=== PATIENT | female | born 2005 | race Caucasian/White ===

== ENCOUNTER 2025-10-17 16:59 | Emergency (ER) | payer OTHER, SELFPAY ==
[2025-10-17 17:15] VITALS: BP 148/79; PULSE 142; RESP 18; TEMP 38.5; O2SAT 98
[2025-10-17 17:55] VITALS: TEMP 38.4
--- NOTE | 2025-10-17 18:06 | ED.URI ---
HPI - URI/Sore Throat General Chief Complaint: Upper Respiratory Infection Stated Complaint: Fever/Dizziness/Cough Time Seen by Provider: 10/17/25 18:02 Source: patient, RN notes reviewed and old records reviewed Mode of arrival: ambulatory Limitations: no limitations History of Present Illness HPI Narrative: 20 year old female who presents to [facility] care with complaints of fever, cough, ear pain, decreased appetite and body aches that just started today. Patient reports that she took some sinus medication. Patient is febrile at 101.2F at time of triage. Patient reports no shortness of breath no tachypnea noted with SAO2 98%, cough noted. MD elicited complaint: cough and sore throat Onset (ago): day(s) (today) Pain scale (0-10): 2 Description of mucous: clear Able to tolerate fluids by mouth: Yes Treatments prior to arrival: other (sinus medication) Related Data Allergies Allergy/AdvReac Type Severity Reaction Status Date / Time vancomycin Allergy Unknown Unknown Verified 10/17/25 17:45 Review of Systems Review of Systems: CONSTITUTIONAL: Reports malaise, chills, sweats, or fever. EYES: Denies visual changes, redness, or discharge. ENT: Reports rhinorrhea, congestion, sinus pain, otalgia and no sore throat. CARDIOVASCULAR: Denies chest pain, palpitations, or edema. RESPIRATORY: Reports cough.? Denies dyspnea. GASTROINTESTINAL: Denies abdominal pain, nausea, vomiting, diarrhea SKIN: Denies rash or itching. MUSCULOSKELETAL: reports myalgia. NEUROLOGIC: Denies headache. All systems reviewed & are unremarkable except as noted in HPI and below PMFSH Past Medical History Medical History (Updated 10/19/25 @ 20:54 by Bushra Dodson APRN) E coli bacteremia had broviac line for treatment Social History Social History (Updated 10/19/25 @ 20:50 by Bushra Dodson APRN) Smoking status: Never smoker Alcohol intake: current Alcohol use details: social Substance use type: does not use Living arrangements: with family Gender identity (if verbalized by the patient): Female Comments At time of signature, agree with nursing past medical, surgical, social and family history. There is no relevant family history pertinent to the presenting complaint Exam Narrative: GENERAL: mildly ill-appearing, well-nourished, and in no acute distress. HEAD: Normocephalic EYES: PERRLA, conjunctivae clear ENT: Nares clear, turbinates edematous and erythematous, clear discharge. Mucous membranes moist. TM pearly [place] with dull light reflex bilaterally; no tragal tenderness. Oropharynx erythematous without lesions. Tonsils not enlarged and without exudate, no drooling, no hoarseness, no trismus, uvula midline.post nasal drainage NECK: Supple. No lymphadenopathy CHEST: Clear to auscultation, breath sounds equal. No wheezing, rhonchi, rales, or stridor. No respiratory distress, speaks in full sentences.frequent cough noted, SAO2 98% on room air HEART: Regular rate and rhythm. No murmur heard. SKIN: Warm, dry, no rash. NEURO: Alert and oriented x3. PSYCH: Normal mood and affect Course Course Level of Care: Express Care Visit Vital Signs Vital signs: Vital Signs Temperature 38.5 C H 10/17/25 17:15 Pulse Rate 142 H 10/17/25 17:15 Respiratory Rate 18 10/17/25 17:15 Blood Pressure 148/79 H 10/17/25 17:15 Pulse Oximetry 98 10/17/25 17:15 Oxygen Delivery Room Air 10/17/25 17:15 Temperature 38.4 C H 10/17/25 17:55 Pulse Rate 142 H 10/17/25 17:15 Respiratory Rate 18 10/17/25 17:15 Blood Pressure 148/79 H 10/17/25 17:15 Pulse Oximetry 98 10/17/25 17:15 Oxygen Delivery Room Air 10/17/25 17:15 reviewed MDM MDM Narrative Medical decision making narrative: Patient tested positive for Influenza A and requested Tamiflu which was ordered. Recommended OTC medications for symptoms control and treament. Anticipatory guidance and reasons to seek care on ED reviewed with patient with understanding voiced. Differential Diagnosis Differential Diagnosis: Differential diagnostic considerations for upper respiratory infection include upper respiratory infection, croup, otitis media, sinusitis, viral infection, bronchitis, influenza, pharyngitis, strep, uvulitis.? Lab Data Lab results narrative: Influenza A positive,Influenza B negative, COVID negative, strep negative, culture sent Labs: Lab Results 10/17/25 Range/Units 17:30 POC Influenza A Ag Positive (Negative) POC Influenza B Ag Negative (Negative) POC SARS CoV-2 Ag Negative (Negative) POC Grp A Strep Screen Negative (Negative) reviewed Critical Care Time Critical Care Time Critical Care Time: No Discharge Plan Discharge Clinical Impression: Influenza A Patient Disposition: Home Condition: Stable Instructions: Influenza (ED) Additional Instructions: Increase fluids especially juices and water Eoio-pdi-clbdyue cough and cold medicine of your choice for your symptoms Tylenol or ibuprofen for any fever pain Zyrtec Claritin or Denice daily may include Coricidin brand decongestant heat to the face 20-30 minutes 4-6 times a day for pain Salt water gargles, throat lozenges or throat sprays as desired Tamiflu per patient request If your symptoms persist, change or worsen significantly before you can contact your personal physician then please, without delay, go to the emergency department for further evaluation. Follow-up with PCP in 7-10 days or sooner if needed Follow up with PCP soon in regards to your blood pressure which is elevated above threshold for referral. Blood pressure above 120/80 may indicate pre-hypertension.148/79 Patient Language: Turkmen Prescriptions: New oseltamivir [Tamiflu] 75 mg capsule 75 mg PO Q12H 5 Days Qty: 10 0RF Follow-up/Referrals: PHYSICIAN,STRAIGHT TOOTH GEAR GENERATOR OPERATOR [Primary Care Provider, Internal Medicine] Stand Alone Forms: Work/School Release IP Time of Disposition: 18:20 [employer] Coma Scale Eyes: Open Verbal: Oriented and Alert Motor: Follows Commands Carole Coma Total Score: 15
--- OUTSIDE RECORDS SUMMARY | 2025-10-17 18:16 | XMS_ITS | Clinical Summary ---
Author Organization [facility] Address [address] [place] [address] Care Team Providers Care Gas Station Manager Name Role Phone Karon De MD Primary Care Provider [phone] Allergies Active Allergy Reactions Criticality Noted Date Comments Nut Flavor Hives High 12/26/2008 Peanut Hives High 08/07/2016 Yellow Dye Hives High 11/14/2010 Medications cetirizine (ZYRTEC) 1 mg/mL Oral Soln Take 5 mL by mouth 2 times daily. 300 mL 0 11/14/2010 Active fexofenadine (DEBBIE) 180 mg tablet Take 1 Tablet (180 mg) by mouth daily. 08/07/2016 Active raNITIdine (ZANTAC) 150 mg Capsule Take 1 Capsule (150 mg) by mouth 2 times daily. 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 Family History Medical History Relation Name Comments Immunodeficiency Maternal Grandmother Immunodeficiency Maternal Uncle Allergic Rhinitis Mother Asthma Mother Atopy Mother rhematiod arthr itis Chronic Sinusitis Mother Eczema Mother Thyroid Disease Mother Relation Name Status Comments Father Alive Maternal Grandmother Maternal Uncle Mother Alive Social History Tobacco Use Types Packs/Day Years Used Date Smoking Tobacco: Never Adolescent Education Answer Date Record ed Getting School Help Needed Not on file 06/05 Comments Unknown Sex and Gender Information Value Date Recorded Sex Assigned at Not on file Legal Sex Female 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 Gender Identity Not on file Sexual Orientation Not on file Last Filed Vital Signs Vital Sign Reading Time Taken Comments Blood Pressure 98/47 08/07/2016 10:05 AM CDT Pulse - - Temperature - - Respiratory Rate - - Oxygen Saturation - - Inhaled Oxygen Concentration - - Weight 45.4 kg (100 lb) 08/07/2016 10:05 AM CDT Height 154.9 cm (5' 1) 08/07/2016 10:05 AM CDT Body Mass Index 18.89 08/07/2016 10:05 AM CDT Plan of Treatment Health Maintenance Due Date Last Done Comments CHLAMYDIA SCREENING (ANNUAL) 11-24 YEARS 2016 HPV VACCINES (1 - 3-dose series) 2020 DTAP/TDAP/TD VACCINES (1 - Tdap) 2024 HEPATITIS B VACCINES (1 of 3 - 19+ 3-dose series) 06/04 INFLUENZA VACCINE (#1) 2025 Care Teams Gas Station Manager Relationship Specialty Start Date End Date Karon De MD [address] [place] [id number] PCP - General 09/13/09
[2025-10-17 19:02] LABS: EDCOVIDSCREEN Negative (Negative); EDINFLUASCREEN Positive (Negative); EDINFLUBSCREEN Negative (Negative); EDSTREPNEGPOS1 Negative (Negative)
== END 2025-10-17 18:25 | disposition home or self-care (01) ==
PROVIDERS: Emergency Provider Registered Nurse
DX: J10.1 Influenza due to other identified influenza virus with other respiratory manifestations (principal); Z20.822 Contact with and (suspected) exposure to COVID-19
CPT/HCPCS: 87081; 87426; 87804; 87880; 99203; G0463